=== PATIENT | female | born 1985 | race Caucasian/White ===

== ENCOUNTER 2017-12-15 09:56 | Inpatient (IN) | payer BC ==
[2017-12-15 10:50] LABS: APPEARANCE,URINE HAZY; BILIRUBIN,URINE NEGATIVE (NEGATIVE); COLOR,URINE YELLOW; GLUCOSE, URINE NEGATIVE (NEGATIVE); KETONES,URINE 25 mg/dL (NEGATIVE); URINE SPECIFIC GRAVITY 1.017
[2017-12-15 10:51] LABS: LEUKOCYTE ESTERASE,URINE LARGE (NEGATIVE); NITRITE,URINE NEGATIVE (NEGATIVE); PROTEIN,URINE 30 mg/dL (NEGATIVE); UROBILINOGEN,URINE NEGATIVE mg/dL (<2.0)
[2017-12-15] MEDS: RINGERS SOLUTION,LACTATED 1,000 ML IV PRN ×3 (11:03→16:01)
[2017-12-15 11:10] LABS: URINE AMPHETAMINES SCREEN NEGATIVE; URINE BARBITURATES SCREEN NEGATIVE; URINE BENZODIAZEPINES SCREEN NEGATIVE; URINE COCAINE SCREEN NEGATIVE; URINE MARIJUANA (THC) SCREEN NEGATIVE; URINE METHADONE SCREEN NEGATIVE; URINE PHENCYCLIDINE SCREEN NEGATIVE
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
[2017-12-15] MEDS ORDERED: OXYTOCIN/NORMAL SALINE 20 UNIT/1,000 ML RTUINJ IV PRN ×2 (11:25→17:48)
[2017-12-15] MEDS ORDERED: PENICILLIN G-K 5 MILLION UNIT VIAL ONE ×2 (11:46→15:43)
[2017-12-15 12:13] LABS: ABSOLUTE LYMPHOCYTES (AUTO) 1.1 10^3/uL (0.5-4.7); ABSOLUTE MONOCYTES (AUTO) 0.5 10^3/uL (0.1-1.4); ABSOLUTE NEUT (AUTO) 7.2 10^3/uL (1.7-8.2); BASOPHILS % (AUTO) 0.3 % (0-2); EOSINOPHILS % (AUTO) 0.2 % (0-6); HEMATOCRIT 32.9 % (36.0-47.0); HEMOGLOBIN 11.6 g/dL (12.0-15.5); LYMPHOCYTES % (AUTO) 12.7 % (13-45); MEAN CORPUSCULAR HEMOGLOBIN 32.1 pg (27.0-33.4); MEAN CORPUSCULAR HGB CONC 35.1 g/dL (32.0-36.0); MEAN CORPUSCULAR VOLUME 92 fl (80-97); MONOCYTES % (AUTO) 6.1 % (3-13); PLATELET COUNT 147 10^3/uL (150-450); RED BLOOD COUNT 3.59 10^6/uL (3.72-5.28); RED CELL DISTRIBUTION WIDTH 13.2 % (11.5-14.0); SEGMENTED NEUTROPHILS % (AUTO) 80.7 % (42-78); TOTAL CELLS COUNTED % (AUTO) 100 %; WHITE BLOOD COUNT 8.9 10^3/uL (4.0-10.5)
[2017-12-15] MEDS ORDERED: OXYTOCIN/NORMAL SALINE 20 UNIT/1,000 ML RTUINJ ONE (12:22)
[2017-12-15 13:07] LABS: RUBELLA IGG ANTIBODY 2.72 IU/mL
[2017-12-15 13:22] LABS: RUBELLA INTERPRETATION NEGATIVE
[2017-12-15] MEDS ORDERED: PENICILLIN G-K 5 MILLION UNIT VIAL IV SCH (15:45)
[2017-12-15] MEDS ORDERED: EPHEDRINE SULFATE INJ 50 MG/1 ML AMPULE ONE (15:49)
[2017-12-15] MEDS ORDERED: FENTANYL/BUPIVACAINE/NS/PF 300 MCG/150 ML RTUINJ EPI ONE (15:50)
[2017-12-15] MEDS ORDERED: BUPIVACAINE HCL 0.5 % INJ/PF 30 ML SDV ONE (15:51)
[2017-12-15 17:32] LABS: CHLAM PCR NOT DETECTED (NOT DETECT); GON PCR NOT DETECTED (NOT DETECT)
[2017-12-15] MEDS ORDERED: ACETAMINOPHEN WITH CODEINE #3 TABLET PO PRN ×2 (17:48)
[2017-12-15] MEDS ORDERED: MEASLES,MUMPS&RUBELLA VACC/PF 0.5 ML VIAL SUBCUT PRN (17:48)
[2017-12-15] MEDS ORDERED: BENZOCAINE/MENTHOL AEROSOL SPRAY 56 ML TOP PRN (17:48)
[2017-12-15] MEDS ORDERED: DIBUCAINE 1% OINTMENT 28 GM TP PRN (17:48)
[2017-12-15] MEDS ORDERED: DIPH/PERTUSS(ACELL)/TETANUS VAC/PF 0.5 ML SYR (>=10YO) IM PRN (17:48)
[2017-12-15] MEDS ORDERED: ZOLPIDEM TARTRATE 5 MG TABLET PO PRN (17:48)
[2017-12-15] MEDS ORDERED: MISOPROSTOL 0.2 MG TABLET PR ONE (17:51)
[2017-12-15] MEDS ORDERED: MISOPROSTOL 0.2 MG TABLET ONE (17:58)
[2017-12-15] MEDS ORDERED: DOCUSATE SODIUM 100 MG CAPSULE PO SCH (18:00)
[2017-12-15] MEDS ORDERED: FERROUS SULFATE 325 MG TABLET PO SCH (18:00)
--- NOTE | 2017-12-15 20:23 | Warning Signs in Babies ---
VOD Warning Signs Datetime Report Generated by [facility]: 12/15/2017 20:23 VOD#[id number] -Warning Signs in Babies: Needs to be viewed. (12/15/2017 10:10:Nate Renee RN)
--- NOTE | 2017-12-15 20:24 | Delivery Summary ---
Del Sum A-C Datetime Report Generated by CPN: 12/15/2017 20:24 DELIVERY PERSONNEL DELIVERY PERSONNEL: [id number] Delivery Doctor:: Dara Morgan MD Labor and Delivery Nurse:: Nate Renee RNhomicide squad lieutenant Nurse:: Crystal Koehler RN Credit Charge Authorizer:: Kirstin Torres RN Field Sales Executive/RETAIL WAREHOUSE SUPERVISOR: Aurora Barrera, ST Field Sales Executive/RETAIL WAREHOUSE SUPERVISOR: Loreto Guerrero, HEART COORDINATOR MATERNAL INFORMATION Delivery Anesthesia: Epidural Medications After Delivery: Pitocin Bolus-Please Comment; Cytotec 800mcg Per Rectum/Vagina Maternal Complications: None LABOR SUMMARY EDC: 12/29/2017 00:00 No. Babies in Womb: 1 Attempted: No Labor Anesthesia: Epidural LABOR INFORMATION Reason for Induction: Premature Rupture of Membranes Onset of Labor: 12/15/2017 11:08 Complete Dilatation: 12/15/2017 16:41 Oxytocin: Augmentation Group B Beta Strep: unknown Antibiotics # of Doses: 2 Antibiotics Time of Last Dose: 15:55 Name of Antibiotic Given: PCN Steroids Given: None Reason Steroids Not Administered: Not Applicable MEMBRANES Membranes Rupture Method: Spontaneous Rupture of Membranes: 12/15/2017 08:30 Length of Rupture (hr): 8.77 Amniotic Fluid Color: Pt reports that fluid was a little cloudy. Amniotic Fluid Amount: Small (Annotations: pt. reported that hte amount of fluids was small.) Amniotic Fluid Odor: Normal (Annotations: Pt. reported that the fluid had no odor.) STAGES OF LABOR Stage 1 hr: 5 Stage 1 min: 33 Stage 2 hr: 0 Stage 2 min: 35 Stage 3 hr: 0 Stage 3 min: 4 Total Time in Labor hr: 6 Total Time in Labor min: 12 VAGINAL DELIVERY Episiotomy: None Laceration #1: None Laceration Extension #1: N/A Laceration Repair: Not Applicable Sponge Count Correct: N/A Sharps Count Correct: N/A CSECTION DELIVERY Primary Indication: N/A Secondary Indication: N/A CSection Incidence: N/A Labor: N/A Elective: N/A CSection Incision: N/A BABY A INFORMATION Infant Delivery Date/Time: 12/15/2017 17:16 Method of Delivery: Vaginal Born in Route : No : N/A Forceps: N/A Vacuum Extraction: N/A Shoulder Dystocia : No PRESENTATION/POSITION BABY A Presentation: Cephalic Cephalic Presentation: Vertex Vertex Position: Occipital Anterior Breech Presentation: N/A PLACENTA INFORMATION BABY A Placenta Delivery Time : 12/15/2017 17:20 Placenta Method of Delivery: Spontaneous Placenta Status: Delivered SCORES BABY A Heart Rate 1 min: >100 bpm Resp Effort 1 min: Good Cry Reflex Irritability 1 min: Cough or Sneeze or Pulls Away Muscle Tone 1 min: Active Motion Color 1 min: Body [place], Extremities Blue Resuscitation Effort 1 min: N/A SCORE 1 MIN: 9 Heart Rate 5 min: >100 bpm Resp Effort 5 min: Good Cry Reflex Irritability 5 min: Cough or Sneeze or Pulls Away Muscle Tone 5 min: Active Motion Color 5 min: Completely [place] Resuscitation Effort 5 min: N/A SCORE 5 MIN: 10 INFORMATION BABY A Gestational Age at Delivery: 38.0 Gestational Status: Early Term- 37- 38.6 Weeks Outcome : Liveborn Condition : Stable Sex: Female IDENTIFICATION BABY A Verification Date/Time: 12/15/2017 17:37 ID Band Number: [id number] Mother's Name Verified: Yes RN Verifying : Eliu torres, RN / C. [place], RN WEIGHT/LENGTH BABY A Birthweight (gm): 3200 Weight (lb): 7 Infant Weight (oz): 1 Length (in): 19.50 Infant Length (cm): 49.53 CORD INFORMATION BABY A No. Cord Vessels: 3 Nuchal Cord : Around Neck x1, Loose Cord Blood Taken: Yes-For Storage (Mom's Blood type +) Suction: None ASSESSMENT BABY A Infant Complications: None Physical Findings at Delivery: Caput Succedaneum Respirations: Appears Normal Skin to Skin: Yes Skin to Skin Time (min): 60 Oven Drier Tender/ALS Called : No Infant Care By: Rowena Koehler, MATTHEW Transferred To: Remains with Mother BABY B INFORMATION : N/A SIGNATURES Signature: with User ID: [email or web address] : I was personally available for consultation and serving as supervising physician for the MLP.
[2017-12-15] MEDS ORDERED: IBUPROFEN 800 MG TABLET ONE (22:08)
[2017-12-15] MEDS: IBUPROFEN 800 MG TABLET PO SCH (22:12)
[2017-12-16 06:50] LABS: HEMATOCRIT 27.2 % (36.0-47.0); MEAN CORPUSCULAR HEMOGLOBIN 32.3 pg (27.0-33.4); MEAN CORPUSCULAR VOLUME 92 fl (80-97); PLATELET COUNT 129 10^3/uL (150-450); RED BLOOD COUNT 2.95 10^6/uL (3.72-5.28); RED CELL DISTRIBUTION WIDTH 13.2 % (11.5-14.0); WHITE BLOOD COUNT 10.2 10^3/uL (4.0-10.5)
[2017-12-16 07:09] LABS: HEMOGLOBIN 9.5 g/dL (12.0-15.5)
[2017-12-16] MEDS ORDERED: IBUPROFEN 800 MG TABLET ONE (07:09)
[2017-12-16] MEDS: IBUPROFEN 800 MG TABLET PO SCH ×2 (07:17→15:06)
--- NOTE | 2017-12-16 08:30 | PDOC PROGRESS REPORT ---
Subjective-OB Progress Note for:: 12/16/17 Subjective: Pt doing well, bonding with baby. She reports reg diet, voiding without difficulty and light bleeding. Physical Exam (OB) Vital Signs: Intake & Output 12/15/17 12/16/17 12/17/17 06:59 06:59 06:59 Intake Total 1999 Balance 1999 Weight 84.4 kg - Lochia Lochia Amount: Small 10-25 ml Lochia Color: Rubra/Red - Abdomen Hernia Present: No Fundal Description: Firm Fundal Height: u/u - u/2 Objective-Diagnostic Laboratory: 12/16/17 06:37 12/15/17 12/15/17 12/15/17 10:25 11:57 11:57 WBC 8.9 RBC 3.59 L Hgb 11.6 L Hct 32.9 L MCV 92 MCH 32.1 MCHC 35.1 RDW 13.2 Plt Count 147 L Seg Neutrophils % 80.7 H Lymphocytes % 12.7 L Monocytes % 6.1 Eosinophils % 0.2 Basophils % 0.3 Absolute Neutrophils 7.2 Absolute Lymphocytes 1.1 Absolute Monocytes 0.5 Absolute Eosinophils 0.0 Absolute Basophils 0.0 Urine Color YELLOW Urine Appearance HAZY Urine pH 7.0 Ur Specific [place] 1.017 Urine Protein 30 H Urine Glucose (UA) NEGATIVE Urine Ketones 25 H Urine Blood NEGATIVE Urine Nitrite NEGATIVE Ur Leukocyte Esterase LARGE H Blood Type B POSITIVE Antibody Screen NEGATIVE 12/16/17 06:37 WBC 10.2 RBC 2.95 L Hgb 9.5 L D Hct 27.2 L MCV 92 MCH 32.3 MCHC 35.0 RDW 13.2 Plt Count 129 L Seg Neutrophils % Lymphocytes % Monocytes % Eosinophils % Basophils % Absolute Neutrophils Absolute Lymphocytes Absolute Monocytes Absolute Eosinophils Absolute Basophils Urine Color Urine Appearance Urine pH Ur Specific [place] Urine Protein Urine Glucose (UA) Urine Ketones Urine Blood Urine Nitrite Ur Leukocyte Esterase Blood Type Antibody Screen
[2017-12-16] MEDS ORDERED: DOCUSATE SODIUM 100 MG CAPSULE ONE (09:39)
[2017-12-16] MEDS ORDERED: FERROUS SULFATE 325 MG TABLET PO ONE (09:39)
[2017-12-16] MEDS ORDERED: PRENATAL VITAMIN W DHA CAPSULE PO ONE (09:39)
[2017-12-16] MEDS ORDERED: SENNOSIDES/DOCUSATE 8.6-50 MG 1 EACH TABLET ONE (09:39)
[2017-12-16] MEDS ORDERED: PRENATAL VITAMIN W DHA CAPSULE PO SCH (10:00)
[2017-12-16] MEDS ORDERED: SENNOSIDES/DOCUSATE 8.6-50 MG 1 EACH TABLET PO SCH (10:00)
--- NOTE | 2017-12-16 15:55 | PDOC DISCHARGE SUMMARY ---
Final Diagnosis Discharge Date: 12/16/17 - Final Diagnosis (1) Vaginal delivery Is this a current diagnosis for this admission?: Yes (2) Premature rupture of membranes Is this a current diagnosis for this admission?: Yes Discharge Data - Discharge Medication Home Medications: Pnv W-O Ca No5/Fe Fumarate/FA [-U Capsule] 1 each PO DAILY 04/03/11 Ascorbic Acid [Vitamin C 500 mg Tablet] 500 mg PO BID 12/15/17 Iron,Carbonyl [Iron Chews] 250 tab PO DAILY 12/15/17 Valacyclovir HCl [Valtrex] 1,000 mg PO DAILY 12/15/17 Reason(s) for Admission: Onset of Labor, PROM Procedures: NST Intrapartum Procedure(s): Spontaneous Vaginal Delivery - Diagnosis Test Laboratory: 12/15/17 12/15/17 12/16/17 10:25 11:57 06:37 RBC 3.59 L 2.95 L Hgb 11.6 L 9.5 L D Hct 32.9 L 27.2 L Urine Opiates Screen NEGATIVE - Discharge information/Instructions Discharge Activity: Balance Activity w/Rest, Pelvic Rest Discharge Diet: Regular Disposition: HOME, SELF-CARE Follow up with: [facility] in: 3, Weeks
== END 2017-12-16 19:04 | disposition home or self-care (01) | DRG 774 ==
LOC: LC 09:56 → LR 11:20
PROVIDERS: ADMIT Obstetrics & Gynecology; ATTEND Obstetrics & Gynecology
PROC: 10E0XZZ Delivery of Products of Conception, External Approach (ICD-10-PCS; principal; 2017-12-15)
PROC: 4A1HXCZ Monitoring of Products of Conception, Cardiac Rate, External Approach (ICD-10-PCS; 2017-12-15)
DX: O98.52 Other viral diseases complicating childbirth (principal); B00.9 Herpesviral infection, unspecified; O69.81X0 Labor and delivery complicated by cord around neck, without compression, not applicable or unspecified; O42.02 Full-term premature rupture of membranes, onset of labor within 24 hours of rupture; Z3A.38 38 weeks gestation of pregnancy; Z37.0 Single live birth; Z79.899 Other long term (current) drug therapy
CPT/HCPCS: 36415; 80307; 81005; 84112; 85025; 85027; 86592; 86701; 86762; 86803; 86804; 86850; 86900; 86901; 87340; 87491; 87591; J2540; J2590; J3010; J3490